=== PATIENT | male | born 1995 | race Hispanic/Latino ===

== ENCOUNTER 2020-07-09 07:51 | Inpatient (IN) | payer OTHER, SELFPAY ==
[2020-07-09] MEDS ORDERED: Ondansetron PF 4 MG/2 ML Vial ONE (08:44)
[2020-07-09] MEDS ORDERED: Ketorolac Tromethamine 30 MG/ML VIAL ONE (08:44)
[2020-07-09 09:38] LABS: #Eosinphils 0.1 thou/uL (0.0-0.7); #Lymphocytes 1.4 thou/uL (1.20-3.40); #Monocytes 1.1 thou/uL (0.11-0.59); #Neutrophils 11.8 thou/uL (1.40-6.50); %Basophils 0.2 % (0.0-1.0); %Eosinophils 0.4 % (0.0-10.0); %Lymphocytes 9.9 % (21.0-51.0); %Monocytes 7.5 % (0.0-10.0); Hemoglobin 14.5 g/dL (14.0-18.0); Mean Corpuscular HGB CONC 33.4 g/dL (32.0-36.0); Mean Corpuscular Hemoglobin 30.7 pg (27.0-31.0); Mean Corpuscular Volume 91.9 fL (78.0-98.0); Mean Platelet Volume 8.5 fL (7.4-10.4); Platelet Count 294 thou/uL (130-400); RBC Distribution Width 13.2 % (11.5-14.5); Red Blood Cell (RBC) Count 4.71 mill/uL (4.70-6.10); White Blood Cell (WBC) Count 14.4 thou/uL (4.8-10.8)
[2020-07-09 09:54] LABS: ALT (SGPT) 41 U/L (8-55); AST (SGOT) 25 U/L (5-34); Albumin 3.7 g/dL (3.5-5.0); Alkaline Phosphatase 85 U/L (40-110); Anion Gap 14 mmol/L (10-20); BUN (Urea Nitrogen) 7 mg/dL (8.9-20.6); Bilirubin, Total 0.8 mg/dL (0.2-1.2); Calc. Creatinine Clearance 0 mL/min (70-130); Calcium 8.6 mg/dL (7.8-10.44); Carbon Dioxide 25 mmol/L (22-29); Chloride 100 mmol/L (98-107); Globulin 4.1 g/dL (2.4-3.5); Glucose 121 mg/dL (70-105); Lipase 6 U/L (8-78); Potassium 3.9 mmol/L (3.5-5.1); Protein, Total 7.8 g/dL (6.0-8.3); Sodium 135 mmol/L (136-145)
[2020-07-09] MEDS ORDERED: Morphine 4 MG/ML VIAL ONE (10:50)
[2020-07-09] MEDS ORDERED: Piperacillin/Tazobactam 4.5 GM VIAL ONE (11:15)
[2020-07-09] MEDS ORDERED: Sodium Chloride 0.9% 100 ML ONE (11:15)
[2020-07-09] MEDS ORDERED: Iopamidol-370 76% 500 ML 1 ML ONE (11:49)
[2020-07-09] MEDS ORDERED: Ondansetron ODT 4 MG TAB PO PRN (12:41)
[2020-07-09] MEDS ORDERED: Ondansetron PF 4 MG/2 ML Vial IVP PRN (12:41)
[2020-07-09] MEDS ORDERED: Acetaminophen 650 MG Suppository PR PRN (12:41)
[2020-07-09] MEDS: Piperacillin/Tazobactam 4.5 GM in Sodium Chloride 0.9% 100 ML IVPB SCH ×2 (14:44→20:38)
[2020-07-09 15:31] VITALS: BMI 58.0
[2020-07-09] MEDS ORDERED: Sodium Chloride 0.9% 1,000 ML IV SCH ×3 (16:00→19:30)
[2020-07-09 17:04] LABS: AST (SGOT) 30 U/L (5-34); Bilirubin, Direct 0.3 mg/dL (0.1-0.3); Bilirubin, Total 0.8 mg/dL (0.2-1.2)
[2020-07-09 17:05] LABS: Lactic Acid 1.2 mmol/L (0.5-2.2)
[2020-07-09] MEDS: Acetaminophen 325 MG TAB PO PRN (17:14)
[2020-07-09] MEDS ORDERED: Morphine 2 MG/ML VIAL SLOW IVP PRN (17:19)
[2020-07-09 18:00] LABS: Albumin 3.4 g/dL (3.5-5.0)
[2020-07-09 18:03] LABS: Protein, Total 7.6 g/dL (6.0-8.3)
[2020-07-09 18:05] LABS: Alkaline Phosphatase 91 U/L (40-110)
[2020-07-09 18:08] LABS: Magnesium 2.1 mg/dL (1.6-2.6)
[2020-07-09 18:09] LABS: ALT (SGPT) 38 U/L (8-55)
[2020-07-09] MEDS: Potassium Chloride 10 MEQ in Dextrose 5 % And 0.9 % NaCl 1,000 ML IV SCH (21:58)
[2020-07-10] MEDS: Piperacillin/Tazobactam 4.5 GM in Sodium Chloride 0.9% 100 ML IVPB SCH ×4 (02:25→20:27)
[2020-07-10] MEDS: Potassium Chloride 10 MEQ in Dextrose 5 % And 0.9 % NaCl 1,000 ML IV SCH (05:42)
[2020-07-10] MEDS: Acetaminophen 325 MG TAB PO PRN ×2 (05:44→16:21)
[2020-07-10 06:36] LABS: Anion Gap 12 mmol/L (10-20); BUN (Urea Nitrogen) 6 mg/dL (8.9-20.6); Band 8 % (5-11); Calc. Creatinine Clearance 328 mL/min (70-130); Calcium 7.8 mg/dL (7.8-10.44); Carbon Dioxide 20 mmol/L (22-29); Chloride 103 mmol/L (98-107); Glucose 154 mg/dL (70-105); Hypochromia SLIGHT = 6-15 cells (100X) (0-5/hpf); Lymphocytes 13 % (21-51); MDiff Complete? YES; Mean Corpuscular HGB CONC 31.6 g/dL (32.0-36.0); Mean Corpuscular Hemoglobin 28.9 pg (27.0-31.0); Mean Corpuscular Volume 91.5 fL (78.0-98.0); Mean Platelet Volume 8.5 fL (7.4-10.4); Monocytes 11 % (0-10); Neutrophil 68 % (42-75); Platelet Count 290 thou/uL (130-400); Platelet Morphology Comment Appears Adequate; Potassium 3.4 mmol/L (3.5-5.1); RBC Distribution Width 13.5 % (11.5-14.5); Red Blood Cell (RBC) Count 4.51 mill/uL (4.70-6.10); Sodium 132 mmol/L (136-145); White Blood Cell (WBC) Count 15.3 thou/uL (4.8-10.8)
[2020-07-10] MEDS ORDERED: D5 0.9% NS w/ 20 mEq KCl 1,000 ML IV SCH (08:15)
[2020-07-10] MEDS ORDERED: FLU VACC QS2020-21(6MOS UP)/PF 60 MCG/0.5 ML SYRINGE IM ONE (09:00)
[2020-07-10] MEDS: Potassium Chloride 10 MEQ in Premix Bag 1 BAG IVPB SCH ×4 (09:15→13:13)
[2020-07-10] MEDS: D5 0.9% NS w/ 20 mEq KCl 1,000 ML IV SCH ×3 (11:30→22:19)
[2020-07-10 20:04] LABS: Mean Corpuscular Hemoglobin 30.3 pg (27.0-31.0); Mean Corpuscular Volume 92.1 fL (78.0-98.0); Mean Platelet Volume 8.4 fL (7.4-10.4); Platelet Count 220 thou/uL (130-400); RBC Distribution Width 13.4 % (11.5-14.5); Red Blood Cell (RBC) Count 4.62 mill/uL (4.70-6.10); White Blood Cell (WBC) Count 18.4 thou/uL (4.8-10.8)
[2020-07-10 20:06] LABS: Lactic Acid 1.8 mmol/L (0.5-2.2)
[2020-07-10 20:21] LABS: Band 5 % (5-11); Lymphocytes 12 % (21-51); MDiff Complete? YES; Monocytes 8 % (0-10); Neutrophil 72 % (42-75); Platelet Morphology Comment Appears Adequate; Reactive Lymphocytes 3 % (0-10)
[2020-07-11] MEDS: Acetaminophen 325 MG TAB PO PRN ×2 (00:10→13:33)
[2020-07-11] MEDS: Piperacillin/Tazobactam 4.5 GM in Sodium Chloride 0.9% 100 ML IVPB SCH ×4 (02:49→20:01)
[2020-07-11 06:06] LABS: Hemoglobin 13.2 g/dL (14.0-18.0); Mean Corpuscular HGB CONC 31.3 g/dL (32.0-36.0); Mean Corpuscular Hemoglobin 28.9 pg (27.0-31.0); Mean Corpuscular Volume 92.4 fL (78.0-98.0); Mean Platelet Volume 8.2 fL (7.4-10.4); Platelet Count 297 thou/uL (130-400); RBC Distribution Width 13.6 % (11.5-14.5); Red Blood Cell (RBC) Count 4.57 mill/uL (4.70-6.10); White Blood Cell (WBC) Count 16.2 thou/uL (4.8-10.8)
[2020-07-11 06:07] LABS: Lymphocytes 21 % (21-51); MDiff Complete? YES; Monocytes 5 % (0-10); Neutrophil 74 % (42-75); Platelet Morphology Comment Appears Adequate
[2020-07-11 06:09] LABS: Anion Gap 14 mmol/L (10-20); BUN (Urea Nitrogen) Less than 4 mg/dL (8.9-20.6); Calc. Creatinine Clearance 311 mL/min (70-130); Calcium 8.1 mg/dL (7.8-10.44); Carbon Dioxide 22 mmol/L (22-29); Chloride 107 mmol/L (98-107); Glucose 136 mg/dL (70-105); Potassium 4.5 mmol/L (3.5-5.1); Sodium 138 mmol/L (136-145)
[2020-07-11] MEDS: Sodium Chloride 0.9% 1,000 ML IV SCH ×2 (08:33→18:08)
[2020-07-11] MEDS ORDERED: Polyethylene Glycol 3350 17 GM Packet PO SCH (18:00)
[2020-07-12] MEDS: Sodium Chloride 0.9% 1,000 ML IV SCH ×5 (02:04→18:47)
[2020-07-12] MEDS: Piperacillin/Tazobactam 4.5 GM in Sodium Chloride 0.9% 100 ML IVPB SCH ×4 (02:05→21:26)
[2020-07-12 06:18] LABS: #Eosinphils 0.1 thou/uL (0.0-0.7); #Lymphocytes 2.1 thou/uL (1.20-3.40); #Monocytes 1.4 thou/uL (0.11-0.59); #Neutrophils 9.8 thou/uL (1.40-6.50); %Basophils 0.3 % (0.0-1.0); %Eosinophils 0.5 % (0.0-10.0); %Lymphocytes 15.6 % (21.0-51.0); %Monocytes 10.2 % (0.0-10.0); %Neutrophils 73.5 % (42.0-75.0); Hemoglobin 12.7 g/dL (14.0-18.0); Mean Corpuscular Hemoglobin 30.6 pg (27.0-31.0); Mean Corpuscular Volume 92.5 fL (78.0-98.0); Mean Platelet Volume 8.2 fL (7.4-10.4); Platelet Count 292 thou/uL (130-400); RBC Distribution Width 13.4 % (11.5-14.5); Red Blood Cell (RBC) Count 4.17 mill/uL (4.70-6.10); White Blood Cell (WBC) Count 13.4 thou/uL (4.8-10.8)
[2020-07-12 06:30] LABS: Anion Gap 14 mmol/L (10-20); BUN (Urea Nitrogen) 4 mg/dL (8.9-20.6); Calc. Creatinine Clearance 337 mL/min (70-130); Calcium 7.9 mg/dL (7.8-10.44); Carbon Dioxide 20 mmol/L (22-29); Chloride 107 mmol/L (98-107); Glucose 95 mg/dL (70-105); Potassium 3.8 mmol/L (3.5-5.1); Sodium 137 mmol/L (136-145)
[2020-07-12] MEDS ORDERED: Polyethylene Glycol 3350 17 GM Packet PO SCH (09:00)
[2020-07-12] MEDS: metroNIDAZOLE 500 MG TAB PO SCH (21:26)
[2020-07-13] MEDS: Piperacillin/Tazobactam 4.5 GM in Sodium Chloride 0.9% 100 ML IVPB SCH (03:00)
[2020-07-13 06:48] LABS: #Eosinphils 0.1 thou/uL (0.0-0.7); #Lymphocytes 1.8 thou/uL (1.20-3.40); #Neutrophils 7.1 thou/uL (1.40-6.50); %Basophils 0.1 % (0.0-1.0); %Eosinophils 1.1 % (0.0-10.0); %Lymphocytes 17.8 % (21.0-51.0); %Monocytes 9.5 % (0.0-10.0); %Neutrophils 71.5 % (42.0-75.0); Hemoglobin 12.7 g/dL (14.0-18.0); Mean Corpuscular HGB CONC 33.2 g/dL (32.0-36.0); Mean Corpuscular Hemoglobin 30.6 pg (27.0-31.0); Mean Corpuscular Volume 92.2 fL (78.0-98.0); Mean Platelet Volume 8.1 fL (7.4-10.4); Platelet Count 366 thou/uL (130-400); RBC Distribution Width 13.6 % (11.5-14.5); Red Blood Cell (RBC) Count 4.15 mill/uL (4.70-6.10)
[2020-07-13 07:09] LABS: Anion Gap 16 mmol/L (10-20); BUN (Urea Nitrogen) 5 mg/dL (8.9-20.6); Calc. Creatinine Clearance 351 mL/min (70-130); Calcium 8.1 mg/dL (7.8-10.44); Carbon Dioxide 20 mmol/L (22-29); Chloride 106 mmol/L (98-107); Glucose 89 mg/dL (70-105); Potassium 3.6 mmol/L (3.5-5.1); Sodium 138 mmol/L (136-145)
[2020-07-13 08:05] VITALS: BP 115/74; TEMP 97.5
[2020-07-13] MEDS: metroNIDAZOLE 500 MG TAB PO SCH ×2 (08:21→15:34)
[2020-07-13] MEDS: Sodium Chloride 0.9% 1,000 ML IV SCH (08:22)
[2020-07-13] MEDS ORDERED: Polyethylene Glycol 3350 17 GM Packet PO SCH (09:00)
[2020-07-13] MEDS ORDERED: Metamucil PACK PO SCH (14:30)
[2020-07-14] MEDS ORDERED: Metamucil PACK PO SCH (09:00)
== END 2020-07-13 16:53 | disposition home or self-care (01) | DRG 872 ==
LOC: ERS 07:51 → T4-A 12:09
PROVIDERS: ADMIT Internal Medicine; ATTEND Internal Medicine
DX: A41.9 Sepsis, unspecified organism (principal); K57.20 Diverticulitis of large intestine with perforation and abscess without bleeding; Z68.43 Body mass index [BMI] 50.0-59.9, adult; R65.20 Severe sepsis without septic shock; Z20.822 Contact with and (suspected) exposure to COVID-19; K76.0 Fatty (change of) liver, not elsewhere classified; E66.01 Morbid (severe) obesity due to excess calories; E87.6 Hypokalemia
CPT/HCPCS: 36415; 74177; 80048; 80053; 83605; 83690; 83735; 85025; 87040; 93005; 96374; J1885; J2270; J2405; J2543; J3480; J3490; J7042; Q9967

== ENCOUNTER 2021-01-04 06:34 | Inpatient (IN) | payer OTHER, SELFPAY ==
[2021-01-04 07:19] LABS: #Lymphocytes 0.7 thou/uL (1.20-3.40); #Monocytes 0.3 thou/uL (0.11-0.59); #Neutrophils 3.1 thou/uL (1.40-6.50); %Basophils 0.6 % (0.0-1.0); %Eosinophils 0.2 % (0.0-10.0); %Lymphocytes 17.7 % (21.0-51.0); %Monocytes 6.3 % (0.0-10.0); %Neutrophils 75.2 % (42.0-75.0); Hemoglobin 15.2 g/dL (14.0-18.0); Mean Corpuscular HGB CONC 34.4 g/dL (32.0-36.0); Mean Corpuscular Hemoglobin 30.6 pg (27.0-31.0); Mean Corpuscular Volume 88.9 fL (78.0-98.0); Mean Platelet Volume 8.6 fL (7.4-10.4); Platelet Count 181 thou/uL (130-400); RBC Distribution Width 13.4 % (11.5-14.5); Red Blood Cell (RBC) Count 4.96 mill/uL (4.70-6.10); White Blood Cell (WBC) Count 4.2 thou/uL (4.8-10.8)
[2021-01-04 07:41] LABS: ALT (SGPT) 86 U/L (8-55); AST (SGOT) 97 U/L (5-34); Albumin 3.7 g/dL (3.5-5.0); Alkaline Phosphatase 61 U/L (40-110); Anion Gap 15 mmol/L (10-20); BUN (Urea Nitrogen) 7 mg/dL (8.9-20.6); Bilirubin, Total 0.6 mg/dL (0.2-1.2); Calc. Creatinine Clearance 0 mL/min (70-130); Calcium 8.4 mg/dL (7.8-10.44); Carbon Dioxide 22 mmol/L (22-29); Chloride 103 mmol/L (98-107); Globulin 3.9 g/dL (2.4-3.5); Glucose 127 mg/dL (70-105); Potassium 3.3 mmol/L (3.5-5.1); Protein, Total 7.6 g/dL (6.0-8.3); Sodium 137 mmol/L (136-145)
[2021-01-04] MEDS ORDERED: Acetaminophen 500 MG TAB ONE (09:03)
[2021-01-04] MEDS ORDERED: Iopamidol-370 76% 500 ML 1 ML ONE (09:16)
[2021-01-04] MEDS ORDERED: Sodium Chloride 0.9% 0 ML ONE (10:32)
[2021-01-04] MEDS ORDERED: cefTRIAXone\\ROCEPHIN 2 GM VIAL ONE (10:32)
[2021-01-04] MEDS ORDERED: HYDROcodone/Acetaminophen 5/325 mg Tablet PO PRN (11:50)
[2021-01-04] MEDS ORDERED: Bisacodyl 10 MG SUPP PR PRN (11:50)
[2021-01-04] MEDS ORDERED: Senokot S 8.6-50 MG TAB PO PRN (11:50)
[2021-01-04] MEDS ORDERED: Calcium Carbonate 500 MG ChewTAB PO PRN (11:50)
[2021-01-04] MEDS ORDERED: Guaifenesin DM 100-10/5 ML UDCUP PO PRN (11:50)
[2021-01-04] MEDS ORDERED: Zolpidem Tartrate 5 MG TAB PO PRN (11:50)
[2021-01-04] MEDS ORDERED: Ondansetron ODT 4 MG TAB PO PRN (11:50)
[2021-01-04] MEDS ORDERED: Sodium Chloride 0.9% 1,000 ML IV SCH (12:00)
[2021-01-04 12:13] LABS: SARS-CoV-2 NAA Rapid Test DETECTED (NotDetected)
[2021-01-04] MEDS ORDERED: Albuterol 200 PUFF (6.7GM INHALER) INH PRN (12:22)
[2021-01-04] MEDS ORDERED: Potassium Chloride 20 MEQ TAB PO SCH (12:30)
[2021-01-04] MEDS ORDERED: Azithromycin 500 MG VIAL ONE (12:49)
[2021-01-04] MEDS ORDERED: Sodium Chloride 0.9% 100 ML ONE (12:49)
[2021-01-04] MEDS ORDERED: Potassium Chloride 20 MEQ TAB ONE (15:30)
[2021-01-04] MEDS ORDERED: Albuterol 200 PUFF (6.7GM INHALER) ONE (15:30)
[2021-01-04] MEDS: Albuterol 200 PUFF (6.7GM INHALER) INH SCH ×2 (15:39→21:08)
[2021-01-04] MEDS: Enoxaparin Sodium 40 MG/0.4 ML SYRINGE SC SCH (21:07)
[2021-01-04] MEDS: Acetaminophen 325 MG TAB PO PRN (21:32)
[2021-01-04] MEDS: Azithromycin 500 MG in Sodium Chloride 0.9% 250 ML 250 ML IVPB SCH (23:58)
[2021-01-05] MEDS: Albuterol 200 PUFF (6.7GM INHALER) INH SCH ×4 (01:13→18:17)
[2021-01-05 02:53] LABS: Strep pneumo Urine Ag NEGATIVE (NEGATIVE)
[2021-01-05 05:29] LABS: Hemoglobin 13.9 g/dL (14.0-18.0); Mean Corpuscular Hemoglobin 28.6 pg (27.0-31.0); Mean Corpuscular Volume 89.4 fL (78.0-98.0); Mean Platelet Volume 9.1 fL (7.4-10.4); Platelet Count 139 thou/uL (130-400); RBC Distribution Width 13.6 % (11.5-14.5); Red Blood Cell (RBC) Count 4.87 mill/uL (4.70-6.10); White Blood Cell (WBC) Count 2.9 thou/uL (4.8-10.8)
[2021-01-05 06:14] LABS: Band 21 % (5-11); Lymphocytes 25 % (21-51); MDiff Complete? YES; Monocytes 2 % (0-10); Neutrophil 52 % (42-75)
[2021-01-05 06:27] LABS: ALT (SGPT) 67 U/L (8-55); AST (SGOT) 79 U/L (5-34); Albumin 3.1 g/dL (3.5-5.0); Alkaline Phosphatase 50 U/L (40-110); Anion Gap 14 mmol/L (10-20); BUN (Urea Nitrogen) 5 mg/dL (8.9-20.6); Bilirubin, Total 0.4 mg/dL (0.2-1.2); Calc. Creatinine Clearance 333 mL/min (70-130); Calcium 7.6 mg/dL (7.8-10.44); Carbon Dioxide 17 mmol/L (22-29); Chloride 105 mmol/L (98-107); Globulin 3.8 g/dL (2.4-3.5); Glucose 86 mg/dL (70-105); Potassium 3.6 mmol/L (3.5-5.1); Protein, Total 6.9 g/dL (6.0-8.3); Sodium 132 mmol/L (136-145)
[2021-01-05 08:13] LABS: Legionella Urinary Ag Negative (Negative)
[2021-01-05] MEDS: Ascorbic Acid 500 mg Chewable Tablet PO SCH (08:53)
[2021-01-05] MEDS: Enoxaparin Sodium 40 MG/0.4 ML SYRINGE SC SCH ×2 (08:53→20:41)
[2021-01-05] MEDS: Cholecalciferol 1,000 UNITS (25 MCG) TAB PO SCH (08:53)
[2021-01-05] MEDS: Zinc Sulfate 220 MG CAP PO SCH (08:54)
[2021-01-05] MEDS ORDERED: Dexamethasone 4 mg/ml Vial SLOW IVP SCH (09:00)
[2021-01-05] MEDS: cefTRIAXone\\ROCEPHIN 1 GM in Sodium Chloride 0.9% 100 ML IVPB SCH (13:02)
[2021-01-05] MEDS: Azithromycin 500 MG in Sodium Chloride 0.9% 250 ML 250 ML IVPB SCH (14:50)
[2021-01-05] MEDS: Loperamide HCl 2 MG CAP PO PRN (14:54)
[2021-01-05] MEDS: Benzonatate 100 MG CAP PO SCH ×2 (18:17→20:41)
[2021-01-06] MEDS: Albuterol 200 PUFF (6.7GM INHALER) INH SCH ×4 (05:34→17:49)
[2021-01-06] MEDS: Cholecalciferol 1,000 UNITS (25 MCG) TAB PO SCH (08:40)
[2021-01-06] MEDS: Benzonatate 100 MG CAP PO SCH ×3 (08:40→20:00)
[2021-01-06] MEDS: Ascorbic Acid 500 mg Chewable Tablet PO SCH (08:40)
[2021-01-06] MEDS: Enoxaparin Sodium 40 MG/0.4 ML SYRINGE SC SCH ×2 (08:40→20:00)
[2021-01-06] MEDS: Zinc Sulfate 220 MG CAP PO SCH (08:41)
[2021-01-06] MEDS: cefTRIAXone\\ROCEPHIN 1 GM in Sodium Chloride 0.9% 100 ML IVPB SCH (13:27)
[2021-01-06] MEDS ORDERED: REMDESIVIR 200 MG in Sodium Chloride 0.9% 250 ML 210 ML IV SCH (14:00)
[2021-01-06] MEDS: Loperamide HCl 2 MG CAP PO PRN (14:37)
[2021-01-06] MEDS: Acetaminophen 325 MG TAB PO PRN ×2 (16:06→23:53)
[2021-01-06] MEDS: Ondansetron PF 4 MG/2 ML Vial IVP PRN (21:56)
[2021-01-07] MEDS: Albuterol 200 PUFF (6.7GM INHALER) INH SCH ×4 (01:41→21:01)
[2021-01-07] MEDS: Ascorbic Acid 500 mg Chewable Tablet PO SCH (07:57)
[2021-01-07] MEDS: Cholecalciferol 1,000 UNITS (25 MCG) TAB PO SCH (07:59)
[2021-01-07] MEDS: Dexamethasone 4 mg/ml Vial SLOW IVP SCH (07:59)
[2021-01-07] MEDS: Enoxaparin Sodium 40 MG/0.4 ML SYRINGE SC SCH ×2 (08:00→20:34)
[2021-01-07] MEDS: REMDESIVIR 100 MG in Sodium Chloride 0.9% 250 ML 230 ML IV SCH (08:01)
[2021-01-07] MEDS: Zinc Sulfate 220 MG CAP PO SCH (08:03)
[2021-01-07 10:18] LABS: #Lymphocytes 0.5 thou/uL (1.20-3.40); #Monocytes 0.1 thou/uL (0.11-0.59); #Neutrophils 1.8 thou/uL (1.40-6.50); %Eosinophils 0.1 % (0.0-10.0); %Lymphocytes 22.5 % (21.0-51.0); %Neutrophils 73.4 % (42.0-75.0); Hemoglobin 14.5 g/dL (14.0-18.0); Mean Corpuscular HGB CONC 33.9 g/dL (32.0-36.0); Mean Corpuscular Volume 88.4 fL (78.0-98.0); Mean Platelet Volume 9.5 fL (7.4-10.4); Platelet Count 139 thou/uL (130-400); RBC Distribution Width 13.7 % (11.5-14.5); Red Blood Cell (RBC) Count 4.85 mill/uL (4.70-6.10); White Blood Cell (WBC) Count 2.4 thou/uL (4.8-10.8)
[2021-01-07] MEDS: Benzonatate 100 MG CAP PO SCH ×3 (10:29→20:34)
[2021-01-07 10:34] LABS: Anion Gap 14 mmol/L (10-20); BUN (Urea Nitrogen) 7 mg/dL (8.9-20.6); CRP (Inflammatory) 9.29 mg/dL (= or < 0.5); Calc. Creatinine Clearance 302 mL/min (70-130); Calcium 7.8 mg/dL (7.8-10.44); Carbon Dioxide 23 mmol/L (22-29); Chloride 103 mmol/L (98-107); Glucose 115 mg/dL (70-105); Potassium 3.2 mmol/L (3.5-5.1); Sodium 137 mmol/L (136-145)
[2021-01-08] MEDS: Albuterol 200 PUFF (6.7GM INHALER) INH SCH ×4 (01:25→18:20)
[2021-01-08] MEDS: REMDESIVIR 100 MG in Sodium Chloride 0.9% 250 ML 230 ML IV SCH (09:34)
[2021-01-08] MEDS: Enoxaparin Sodium 40 MG/0.4 ML SYRINGE SC SCH ×2 (09:35→20:53)
[2021-01-08] MEDS: Cholecalciferol 1,000 UNITS (25 MCG) TAB PO SCH (09:35)
[2021-01-08] MEDS: Benzonatate 100 MG CAP PO SCH ×3 (09:35→20:53)
[2021-01-08] MEDS: Zinc Sulfate 220 MG CAP PO SCH (09:35)
[2021-01-08] MEDS: Ascorbic Acid 500 mg Chewable Tablet PO SCH (09:35)
[2021-01-08] MEDS: Dexamethasone 4 mg/ml Vial SLOW IVP SCH (09:36)
[2021-01-09] MEDS: Albuterol 200 PUFF (6.7GM INHALER) INH SCH ×4 (04:05→20:36)
[2021-01-09 05:24] LABS: ALT (SGPT) 75 U/L (8-55); AST (SGOT) 90 U/L (5-34); Alkaline Phosphatase 43 U/L (40-110); Bilirubin, Direct 0.3 mg/dL (0.1-0.3); Bilirubin, Total 0.5 mg/dL (0.2-1.2); Protein, Total 7.3 g/dL (6.0-8.3)
[2021-01-09 05:27] LABS: Anion Gap 14 mmol/L (10-20); BUN (Urea Nitrogen) 9 mg/dL (8.9-20.6); CRP (Inflammatory) 4.69 mg/dL (= or < 0.5); Calc. Creatinine Clearance 342 mL/min (70-130); Calcium 7.9 mg/dL (7.8-10.44); Carbon Dioxide 21 mmol/L (22-29); Chloride 106 mmol/L (98-107); Glucose 124 mg/dL (70-105); Potassium 3.7 mmol/L (3.5-5.1); Sodium 137 mmol/L (136-145)
[2021-01-09] MEDS: Enoxaparin Sodium 40 MG/0.4 ML SYRINGE SC SCH ×2 (08:41→20:37)
[2021-01-09] MEDS: Zinc Sulfate 220 MG CAP PO SCH (08:42)
[2021-01-09] MEDS: Cholecalciferol 1,000 UNITS (25 MCG) TAB PO SCH (08:42)
[2021-01-09] MEDS: Benzonatate 100 MG CAP PO SCH ×3 (08:42→20:37)
[2021-01-09] MEDS: Ascorbic Acid 500 mg Chewable Tablet PO SCH (08:42)
[2021-01-09] MEDS: Dexamethasone 4 mg/ml Vial SLOW IVP SCH (08:42)
[2021-01-09] MEDS: REMDESIVIR 100 MG in Sodium Chloride 0.9% 250 ML 230 ML IV SCH (08:43)
[2021-01-09] MEDS ORDERED: Iopamidol-370 76% 500 ML 1 ML ONE (09:56)
[2021-01-09] MEDS: Morphine 4 MG/ML VIAL SLOW IVP PRN ×4 (10:15→22:39)
[2021-01-09] MEDS ORDERED: Sodium Chloride 0.9% 500 ML IV SCH (11:30)
[2021-01-09] MEDS ORDERED: Piperacillin/Tazobactam 3.375 GM in Sodium Chloride 0.9% 100 ML IVPB SCH (12:00)
[2021-01-09] MEDS: Sodium Chloride 0.9% 1,000 ML IV SCH ×2 (14:33→20:37)
[2021-01-09] MEDS: Piperacillin/Tazobactam 3.375 GM in Sodium Chloride 0.9% 100 ML IVPB SCH ×2 (16:05→22:39)
[2021-01-09 17:53] LABS: #Basophils 0.1 thou/uL (0.0-0.2); #Lymphocytes 0.6 thou/uL (1.20-3.40); #Monocytes 0.6 thou/uL (0.11-0.59); #Neutrophils 6.4 thou/uL (1.40-6.50); %Basophils 0.8 % (0.0-1.0); %Lymphocytes 8.3 % (21.0-51.0); %Monocytes 7.3 % (0.0-10.0); %Neutrophils 83.5 % (42.0-75.0); Hemoglobin 15.9 g/dL (14.0-18.0); Mean Corpuscular HGB CONC 35.7 g/dL (32.0-36.0); Mean Corpuscular Hemoglobin 31.5 pg (27.0-31.0); Mean Corpuscular Volume 88.3 fL (78.0-98.0); Mean Platelet Volume 9.5 fL (7.4-10.4); Platelet Count 190 thou/uL (130-400); RBC Distribution Width 13.6 % (11.5-14.5); Red Blood Cell (RBC) Count 5.05 mill/uL (4.70-6.10); White Blood Cell (WBC) Count 7.6 thou/uL (4.8-10.8)
[2021-01-10] MEDS: Albuterol 200 PUFF (6.7GM INHALER) INH SCH ×4 (01:49→21:02)
[2021-01-10] MEDS: Morphine 4 MG/ML VIAL SLOW IVP PRN ×3 (02:54→21:03)
[2021-01-10] MEDS: Ondansetron PF 4 MG/2 ML Vial IVP PRN ×3 (02:56→21:04)
[2021-01-10] MEDS: Sodium Chloride 0.9% 1,000 ML IV SCH ×3 (04:03→21:02)
[2021-01-10 05:20] LABS: ALT (SGPT) 63 U/L (8-55); AST (SGOT) 57 U/L (5-34); Albumin 3.3 g/dL (3.5-5.0); Alkaline Phosphatase 44 U/L (40-110); Anion Gap 15 mmol/L (10-20); BUN (Urea Nitrogen) 10 mg/dL (8.9-20.6); Bilirubin, Direct 0.4 mg/dL (0.1-0.3); CRP (Inflammatory) 11.51 mg/dL (= or < 0.5); Calc. Creatinine Clearance 287 mL/min (70-130); Calcium 8.1 mg/dL (7.8-10.44); Carbon Dioxide 22 mmol/L (22-29); Chloride 105 mmol/L (98-107); Glucose 143 mg/dL (70-105); Potassium 3.6 mmol/L (3.5-5.1); Protein, Total 7.4 g/dL (6.0-8.3); Sodium 138 mmol/L (136-145)
[2021-01-10 05:30] LABS: Band 7 % (5-11); Hemoglobin 16.1 g/dL (14.0-18.0); Lymphocytes 8 % (21-51); MDiff Complete? YES; Mean Corpuscular HGB CONC 33.6 g/dL (32.0-36.0); Mean Corpuscular Volume 89.5 fL (78.0-98.0); Mean Platelet Volume 9.8 fL (7.4-10.4); Monocytes 5 % (0-10); Neutrophil 77 % (42-75); Platelet Count 197 thou/uL (130-400); Platelet Morphology Comment Appears Adequate; RBC Distribution Width 13.9 % (11.5-14.5); RBC Morphology Normal; Reactive Lymphocytes 3 % (0-10); Red Blood Cell (RBC) Count 5.36 mill/uL (4.70-6.10); White Blood Cell (WBC) Count 8.1 thou/uL (4.8-10.8)
[2021-01-10] MEDS: Piperacillin/Tazobactam 3.375 GM in Sodium Chloride 0.9% 100 ML IVPB SCH ×3 (08:05→23:59)
[2021-01-10] MEDS: Dexamethasone 4 mg/ml Vial SLOW IVP SCH (08:06)
[2021-01-10] MEDS: Zinc Sulfate 220 MG CAP PO SCH ×2 (08:07→09:48)
[2021-01-10] MEDS: Benzonatate 100 MG CAP PO SCH ×4 (08:07→21:02)
[2021-01-10] MEDS: Ascorbic Acid 500 mg Chewable Tablet PO SCH ×2 (08:07→09:48)
[2021-01-10] MEDS: Cholecalciferol 1,000 UNITS (25 MCG) TAB PO SCH ×2 (08:09→09:48)
[2021-01-10] MEDS: Enoxaparin Sodium 40 MG/0.4 ML SYRINGE SC SCH ×2 (08:15→21:02)
[2021-01-10] MEDS: REMDESIVIR 100 MG in Sodium Chloride 0.9% 250 ML 230 ML IV SCH (08:16)
[2021-01-11] MEDS: Albuterol 200 PUFF (6.7GM INHALER) INH SCH ×4 (02:26→20:50)
[2021-01-11] MEDS: Ondansetron PF 4 MG/2 ML Vial IVP PRN (03:49)
[2021-01-11] MEDS: Morphine 4 MG/ML VIAL SLOW IVP PRN (03:49)
[2021-01-11 04:46] LABS: #Lymphocytes 1.1 thou/uL (1.20-3.40); #Monocytes 0.9 thou/uL (0.11-0.59); #Neutrophils 8.6 thou/uL (1.40-6.50); %Basophils 0.1 % (0.0-1.0); %Eosinophils 0.1 % (0.0-10.0); %Lymphocytes 10.4 % (21.0-51.0); %Neutrophils 81.3 % (42.0-75.0); Hemoglobin 13.8 g/dL (14.0-18.0); Mean Corpuscular HGB CONC 33.5 g/dL (32.0-36.0); Mean Corpuscular Volume 89.8 fL (78.0-98.0); Mean Platelet Volume 9.4 fL (7.4-10.4); Platelet Count 181 thou/uL (130-400); RBC Distribution Width 13.8 % (11.5-14.5); Red Blood Cell (RBC) Count 4.61 mill/uL (4.70-6.10); White Blood Cell (WBC) Count 10.6 thou/uL (4.8-10.8)
[2021-01-11 05:12] LABS: ALT (SGPT) 42 U/L (8-55); AST (SGOT) 34 U/L (5-34); Albumin 2.9 g/dL (3.5-5.0); Alkaline Phosphatase 39 U/L (40-110); Anion Gap 11 mmol/L (10-20); BUN (Urea Nitrogen) 9 mg/dL (8.9-20.6); Bilirubin, Direct 0.5 mg/dL (0.1-0.3); Bilirubin, Total 0.7 mg/dL (0.2-1.2); Calc. Creatinine Clearance 341 mL/min (70-130); Calcium 8.4 mg/dL (7.8-10.44); Carbon Dioxide 25 mmol/L (22-29); Chloride 108 mmol/L (98-107); Glucose 135 mg/dL (70-105); Potassium 3.3 mmol/L (3.5-5.1); Protein, Total 6.6 g/dL (6.0-8.3); Sodium 141 mmol/L (136-145)
[2021-01-11 05:22] LABS: CRP (Inflammatory) 31.72 mg/dL (= or < 0.5)
[2021-01-11] MEDS: Piperacillin/Tazobactam 3.375 GM in Sodium Chloride 0.9% 100 ML IVPB SCH ×2 (08:12→16:29)
[2021-01-11] MEDS: Enoxaparin Sodium 40 MG/0.4 ML SYRINGE SC SCH ×2 (08:13→20:49)
[2021-01-11] MEDS: Dexamethasone 4 mg/ml Vial SLOW IVP SCH (08:13)
[2021-01-11] MEDS: Ascorbic Acid 500 mg Chewable Tablet PO SCH (08:15)
[2021-01-11] MEDS: Zinc Sulfate 220 MG CAP PO SCH (08:15)
[2021-01-11] MEDS: Cholecalciferol 1,000 UNITS (25 MCG) TAB PO SCH (08:15)
[2021-01-11] MEDS: Benzonatate 100 MG CAP PO SCH ×3 (10:26→20:50)
[2021-01-11] MEDS: Sodium Chloride 0.9% 1,000 ML IV SCH (12:14)
[2021-01-11] MEDS ORDERED: Polyethylene Glycol 3350 17 GM Packet PO SCH (17:30)
[2021-01-12] MEDS: Albuterol 200 PUFF (6.7GM INHALER) INH SCH ×4 (01:04→21:02)
[2021-01-12] MEDS: Sodium Chloride 0.9% 1,000 ML IV SCH ×2 (01:04→13:36)
[2021-01-12] MEDS: Piperacillin/Tazobactam 3.375 GM in Sodium Chloride 0.9% 100 ML IVPB SCH ×3 (01:04→15:28)
[2021-01-12 05:07] LABS: #Neutrophils 9.7 thou/uL (1.40-6.50); %Basophils 0.3 % (0.0-1.0); %Eosinophils 0.1 % (0.0-10.0); %Lymphocytes 8.8 % (21.0-51.0); %Monocytes 8.8 % (0.0-10.0); Hemoglobin 13.8 g/dL (14.0-18.0); Mean Corpuscular HGB CONC 33.4 g/dL (32.0-36.0); Mean Corpuscular Hemoglobin 30.3 pg (27.0-31.0); Mean Corpuscular Volume 90.8 fL (78.0-98.0); Mean Platelet Volume 9.7 fL (7.4-10.4); Platelet Count 224 thou/uL (130-400); RBC Distribution Width 14.2 % (11.5-14.5); Red Blood Cell (RBC) Count 4.56 mill/uL (4.70-6.10); White Blood Cell (WBC) Count 11.8 thou/uL (4.8-10.8)
[2021-01-12 05:28] LABS: Anion Gap 14 mmol/L (10-20); BUN (Urea Nitrogen) 10 mg/dL (8.9-20.6); Calc. Creatinine Clearance 346 mL/min (70-130); Calcium 8.6 mg/dL (7.8-10.44); Carbon Dioxide 22 mmol/L (22-29); Chloride 107 mmol/L (98-107); Glucose 151 mg/dL (70-105); Potassium 3.5 mmol/L (3.5-5.1); Sodium 139 mmol/L (136-145)
[2021-01-12] MEDS: Morphine 4 MG/ML VIAL SLOW IVP PRN (05:56)
[2021-01-12] MEDS: Enoxaparin Sodium 40 MG/0.4 ML SYRINGE SC SCH ×2 (08:28→21:01)
[2021-01-12] MEDS: Zinc Sulfate 220 MG CAP PO SCH (08:28)
[2021-01-12] MEDS: Benzonatate 100 MG CAP PO SCH ×3 (08:28→21:01)
[2021-01-12] MEDS: Ascorbic Acid 500 mg Chewable Tablet PO SCH (08:28)
[2021-01-12] MEDS: Cholecalciferol 1,000 UNITS (25 MCG) TAB PO SCH (08:28)
[2021-01-12] MEDS: Polyethylene Glycol 3350 17 GM Packet PO SCH (08:28)
[2021-01-12] MEDS: Dexamethasone 4 mg/ml Vial SLOW IVP SCH (08:28)
[2021-01-12] MEDS ORDERED: Morphine 2 MG/ML VIAL SLOW IVP PRN (19:08)
[2021-01-12] MEDS ORDERED: Sodium Chloride 0.9% 1,000 ML IV SCH (21:00)
[2021-01-12] MEDS: metroNIDAZOLE 500 MG TAB PO SCH (21:04)
[2021-01-13] MEDS: Piperacillin/Tazobactam 3.375 GM in Sodium Chloride 0.9% 100 ML IVPB SCH ×2 (01:13→07:54)
[2021-01-13] MEDS: Albuterol 200 PUFF (6.7GM INHALER) INH SCH ×2 (01:14→06:14)
[2021-01-13] MEDS: Sodium Chloride 0.9% 1,000 ML IV SCH (03:56)
[2021-01-13 06:16] LABS: Hemoglobin 13.8 g/dL (14.0-18.0); Lymphocytes 23 % (21-51); MDiff Complete? YES; Mean Corpuscular HGB CONC 31.6 g/dL (32.0-36.0); Mean Corpuscular Hemoglobin 28.4 pg (27.0-31.0); Mean Corpuscular Volume 89.8 fL (78.0-98.0); Mean Platelet Volume 10.1 fL (7.4-10.4); Monocytes 7 % (0-10); Neutrophil 70 % (42-75); Platelet Count 219 thou/uL (130-400); Platelet Morphology Comment Appears Adequate; RBC Morphology Normal; Red Blood Cell (RBC) Count 4.85 mill/uL (4.70-6.10); White Blood Cell (WBC) Count 7.8 thou/uL (4.8-10.8)
[2021-01-13 06:21] LABS: Anion Gap 14 mmol/L (10-20); BUN (Urea Nitrogen) 12 mg/dL (8.9-20.6); Calc. Creatinine Clearance 368 mL/min (70-130); Calcium 8.8 mg/dL (7.8-10.44); Carbon Dioxide 21 mmol/L (22-29); Chloride 108 mmol/L (98-107); Glucose 150 mg/dL (70-105); Potassium 3.8 mmol/L (3.5-5.1); Sodium 139 mmol/L (136-145)
[2021-01-13] MEDS: Dexamethasone 4 mg/ml Vial SLOW IVP SCH (07:55)
[2021-01-13] MEDS: Ascorbic Acid 500 mg Chewable Tablet PO SCH (07:55)
[2021-01-13] MEDS: Enoxaparin Sodium 40 MG/0.4 ML SYRINGE SC SCH (07:56)
[2021-01-13] MEDS: Zinc Sulfate 220 MG CAP PO SCH (07:56)
[2021-01-13] MEDS: Cholecalciferol 1,000 UNITS (25 MCG) TAB PO SCH (07:56)
[2021-01-13] MEDS: metroNIDAZOLE 500 MG TAB PO SCH (07:56)
[2021-01-13 08:42] VITALS: BMI 55.3
[2021-01-13] MEDS: Polyethylene Glycol 3350 17 GM Packet PO SCH (10:29)
[2021-01-13] MEDS: Benzonatate 100 MG CAP PO SCH (10:29)
[2021-01-13 12:02] VITALS: BP 107/55; TEMP 97.5
== END 2021-01-13 12:45 | disposition home or self-care (01) | DRG 177 ==
LOC: ERS 06:34 → ERHOLD 11:09 → 2SE 20:46
PROVIDERS: ADMIT Internal Medicine; ATTEND Internal Medicine
PROC: XW033E5 Introduction of Remdesivir Anti-infective into Peripheral Vein, Percutaneous Approach, New Technology Group 5 (ICD-10-PCS; principal; 2021-01-04)
PROC: 8E0ZXY6 Isolation (ICD-10-PCS; 2021-01-04)
DX: U07.1 COVID-19 (principal); J12.82 Pneumonia due to coronavirus disease 2019; J96.01 Acute respiratory failure with hypoxia; Z68.43 Body mass index [BMI] 50.0-59.9, adult; E87.1 Hypo-osmolality and hyponatremia; K57.20 Diverticulitis of large intestine with perforation and abscess without bleeding; E66.01 Morbid (severe) obesity due to excess calories; E87.6 Hypokalemia; K76.0 Fatty (change of) liver, not elsewhere classified
CPT/HCPCS: 36415; 71045; 71275; 74176; 74177; 80048; 80053; 80076; 82550; 82728; 84145; 84484; 85025; 85379; 86140; 87040; 87449; 87804; 87899; 93005; 93010; 96365; 96375; J0456; J0696; J1100; J1650; J2270; J2405; J2543; J3490; J7030; J7050; Q9967; U0002